=== PATIENT | female | born 1965 ===

== ENCOUNTER 2016-12-15 19:54 | Emergency (ER) | payer MEDICAID ==
[2016-12-15 19:55] VITALS: BMI 25.9
[2016-12-15 20:04] VITALS: TEMP 98.1
[2016-12-15] MEDS ORDERED: Albuterol-Ipratrop 3 mg / 0.5 (3 ml) UD IH STA (20:07)
--- NOTE | 2016-12-15 20:13 | ED PDOC ---
Arrival/HPI - General Chief Complaint: Shortness Of Breath Time Seen by Provider: 12/15/16 19:57 Historian: Patient - History of Present Illness Narrative History of Present Illness (Text): 12/15/16 20:05 A 51 year old female, whose past medical history includes asthma and hypertension, presents to the emergency department complaining of shortness of breath today. Patient reports her asthma flared up and she had ran out of her medication. Patient denies of any fever, chills, chest pain, productive cough, or any other complaints. PMD: Dr. Yi Time/Duration: Other (occurred today) Symptom Onset: Sudden Symptom Course: Unchanged Past Medical History - Provider Review Nursing Documentation Reviewed: Yes - Infectious Disease Hx of Infectious Diseases: None - Tetanus Immunization Tetanus Immunization: Up to Date - Cardiac Hx Hypertension: Yes - Pulmonary Hx Asthma: Yes - Neurological Hx Dizziness: Yes Hx Seizures: Yes - HEENT Hx HEENT Disorder: No Hx Macular Degeneration: No - Renal Hx Renal Disorder: No Hx Renal Failure: No - Endocrine/Metabolic Hx Endocrine Disorders: No Hx Systemic Lupus Erythematosus: No - Hematological/Oncological Hx Blood Disorders: No Hx Unexplained Bleeding: No - Integumentary Hx Dermatological Disorder: No Hx Squamous Cell Carcinoma: No - Musculoskeletal/Rheumatological Hx Falls: Yes (Seizures) - Gastrointestinal Hx Gastrointestinal Disorders: No - Genitourinary/Gynecological Hx Genitourinary Disorders: No Hx Urinary Tract Infection: No - Psychiatric Hx Psychophysiologic Disorder: No Hx Sexual Abuse: No Hx Substance Use: No - Past Surgical History Past Surgical History: No Previous - Surgical History Hx Valve Replacement: No - Anesthesia Hx Anesthesia: No - Suicidal Assessment Feels Threatened In Home Enviroment: No Family/Social History - Physician Review Nursing Documentation Reviewed: Yes Family/Social History: No Known Family HX Smoking Status: Never Smoked Hx Alcohol Use: Yes Hx Substance Use: No Hx Substance Use Treatment: No Allergies/Home Meds Allergies/Adverse Reactions: Allergies No Known Allergies Allergy (Verified 01/07/16 20:30) Home Medications: Home Meds Medication Instructions Recorded Confirmed Ergocalciferol (Vitamin D2) 50,000 iu PO Q2W 11/28/15 01/08/16 [Vitamin D2] HCTZ/Losartan Potassium [Hyzaar 12.5 mg PO DAILY 11/28/15 01/08/16 12.5 mg-50 mg] Review of Systems - Physician Review All systems were reviewed & negative as marked: Yes - Review of Systems Constitutional: absent: Fevers, Night Sweats Respiratory: SOB. absent: Cough (no productive cough) Cardiovascular: absent: Chest Pain Physical Exam Vital Signs Reviewed: Yes Vital Signs Temp Pulse Resp BP Pulse Ox 12/15/16 20:15 20 12/15/16 20:01 98.1 F 112 H 18 146/107 H 99 Temperature: Afebrile Blood Pressure: Normal Pulse: Tachycardic Respiratory Rate: Normal Appearance: Positive for: Well-Appearing Pain Distress: None Mental Status: Positive for: Alert and Oriented X 3 - Systems Exam Head: Present: Atraumatic, Normocephalic Pupils: Present: PERRL Extroacular Muscles: Present: EOMI Conjunctiva: Present: Normal Mouth: Present: Moist Mucous Membranes Neck: Present: Normal Range of Motion Respiratory/Chest: Present: Wheezes (wheezing bilaterally) Cardiovascular: Present: Regular Rate and Rhythm, Normal S1, S2. No: Murmurs Abdomen: Present: Normal Bowel Sounds. No: Tenderness, Distention, Peritoneal Signs Back: Present: Normal Inspection Upper Extremity: Present: Normal Inspection. No: Cyanosis, Edema Lower Extremity: Present: Normal Inspection. No: Edema Neurological: Present: GCS=15, CN II-XII Intact, Speech Normal Skin: Present: Warm, Dry, Normal Color. No: Rashes Psychiatric: Present: Alert, Oriented x 3, Normal Insight, Normal Concentration Medical Decision Making ED Course and Treatment: 12/15/16 20:10 Impression: 51 year old female with shortness of breath. Physical exam shows bilateral wheezing in the lungs. Plan: -- Duoneb -- Reassess and disposition Prior Visits: Notes and results from previous visits were reviewed. On 01/07/2016, patient visited the emergency department for shortness of breath. Patient was admitted. Progress Notes: - EKG Interpretation EKG Interpretation (Text): 12/15/16 20:15 Sinus tachycardia@ 110,no acute changes Interpreted by ED Physician: Yes Type: 12 lead EKG - Medication Orders Current Medication Orders: Discontinued Medications Albuterol/Ipratropium (Duoneb 3 Mg/0.5 Mg (3 Ml) Ud) 3 ml IH ONCE STA Stop: 12/15/16 20:08 Last Admin: 12/15/16 20:18 Dose: 3 ml - Scribe Statement The provider has reviewed the documentation as recorded by the Marshaiblucero Greer Provider Scribe Provider Scribe Attestation: All medical record entries made by the Marshaibe were at my direction and personally dictated by me. I have reviewed the chart and agree that the record accurately reflects my personal performance of the history, physical exam, medical decision making, and the department course for this patient. I have also personally directed, reviewed, and agree with the discharge instructions and disposition. Disposition/Present on Arrival - Present on Arrival Any Indicators Present on Arrival: No History of DVT/PE: No History of Uncontrolled Diabetes: No Urinary Catheter: No History of Decub. Ulcer: No History Surgical Site Infection Following: None - Disposition Have Diagnosis and Disposition been Completed?: Yes Diagnosis: Asthma Disposition: HOME/ ROUTINE Disposition Time: 21:21 Patient Plan: Discharge Condition: GOOD Discharge Instructions (ExitCare): Asthma (ED) Additional Instructions: Medication as prescribed/follow up with your doctor this week Referrals: Veronica Yi DO [Primary Care Provider] - Follow up with primary Forms: [employer] ([place])
[2016-12-15 20:19] VITALS: RESP 20
[2016-12-15 22:12] VITALS: BP 144/97; PULSE 96; O2SAT 98
--- NOTE | 2016-12-16 13:48 | CARD ---
APPROVED REPORT EKG Measurement Heart [id number] <Conclusion> Sinus tachycardia Otherwise normal ECG
== END 2016-12-15 22:12 | disposition home or self-care (01) ==
LOC: ED 19:54
DX: J45.909 Unspecified asthma, uncomplicated (principal); I10 Essential (primary) hypertension

== ENCOUNTER 2018-05-22 11:03 | Outpatient (CLI) | payer MEDICAID | END 2018-05-22 11:04 | disposition home or self-care (01) | LOC: RAD 11:03 ==

== ENCOUNTER 2018-05-31 13:53 | Emergency (ER) | payer MEDICAID ==
[2018-05-31 14:16] VITALS: RESP 18; BMI 30.7
--- NOTE | 2018-05-31 14:25 | ED PDOC ---
Arrival/HPI - General Historian: Patient - History of Present Illness Narrative History of Present Illness (Text): 05/31/18 14:13 53 y/o female, pmh including htn, nkda, post menopausal, c/o rt. lower back pain x 3 days with no fall or trauma. Aching pain, aggravated by movement, feels spasm, no numbness or tingling, non radiating pain, no urinary symptoms, no rash, no night sweat, no dizziness, no change in vision, no other medical or psychological complaints. Past Medical History - Provider Review Nursing Documentation Reviewed: Yes - Infectious Disease Hx of Infectious Diseases: None - Tetanus Immunization Tetanus Immunization: Up to Date - Cardiac Hx Hypertension: Yes - Pulmonary Hx Asthma: Yes - Neurological Hx Dizziness: Yes Hx Seizures: Yes - HEENT Hx HEENT Disorder: No Hx Macular Degeneration: No - Renal Hx Renal Disorder: No Hx Renal Failure: No - Endocrine/Metabolic Hx Endocrine Disorders: No Hx Systemic Lupus Erythematosus: No - Hematological/Oncological Hx Blood Disorders: No Hx Unexplained Bleeding: No - Integumentary Hx Dermatological Disorder: No Hx Squamous Cell Carcinoma: No - Musculoskeletal/Rheumatological Hx Falls: Yes (Seizures) - Gastrointestinal Hx Gastrointestinal Disorders: No - Genitourinary/Gynecological Hx Genitourinary Disorders: No Hx Urinary Tract Infection: No - Psychiatric Hx Psychophysiologic Disorder: No Hx Sexual Abuse: No Hx Substance Use: No - Past Surgical History Past Surgical History: No Previous - Surgical History Hx Valve Replacement: No - Anesthesia Hx Anesthesia: No - Suicidal Assessment Feels Threatened In Home Enviroment: No Family/Social History - Physician Review Nursing Documentation Reviewed: Yes Family/Social History: Unknown Family HX Smoking Status: Never Smoked Hx Alcohol Use: Yes Hx Substance Use: No Hx Substance Use Treatment: No Allergies/Home Meds Allergies/Adverse Reactions: Allergies No Known Allergies Allergy (Verified 05/31/18 14:14) Home Medications: Home Meds Medication Instructions Recorded Confirmed Ergocalciferol (Vitamin D2) 50,000 iu PO Q2W 11/28/15 05/31/18 [Vitamin D2] HCTZ/Losartan Potassium [Hyzaar 12.5 mg PO DAILY 11/28/15 05/31/18 12.5 mg-50 mg] Review of Systems - Review of Systems Constitutional: absent: Fatigue, Fevers Eyes: absent: Vision Changes ENT: absent: Hearing Changes Respiratory: absent: SOB, Cough Cardiovascular: absent: Chest Pain Gastrointestinal: absent: Abdominal Pain, Nausea, Vomiting Musculoskeletal: Back Pain. absent: Arthralgias, Neck Pain, Myalgias Skin: absent: Rash, Pruritis Neurological: absent: Headache, Dizziness Hemo/Lymphatic: absent: Adenopathy Psychiatric: absent: Anxiety, Depression, Suicidal Ideation Physical Exam Vital Signs Reviewed: Yes Temperature: Afebrile Blood Pressure: Hypertensive Pulse: Regular Respiratory Rate: Normal Appearance: Positive for: Well-Appearing, Non-Toxic, Comfortable Pain Distress: None Mental Status: Positive for: Alert and Oriented X 3 - Systems Exam Head: Present: Atraumatic, Normocephalic Pupils: Present: PERRL Extroacular Muscles: Present: EOMI Conjunctiva: Present: Normal Mouth: Present: Moist Mucous Membranes Neck: Present: Normal Range of Motion Respiratory/Chest: Present: Clear to Auscultation, Good Air Exchange. No: Respiratory Distress, Accessory Muscle Use Cardiovascular: Present: Regular Rate and Rhythm, Normal S1, S2. No: Murmurs Abdomen: No: Tenderness, Distention, Peritoneal Signs Back: Present: Normal Inspection, Other (Thoracic to LS spine: +ttp and spasm noted on the rt. paraspinal lumbar region, no midline tenderness or step off, no rash, FROM without limitation but pain is reproducible by flexion/lateral movement, sensation intact, motor 5/5, +DPPT pusles, capillary refill< 2 seconds, neurovascular intact. ). No: CVA Tenderness, Midline Tenderness, Pain with Leg Raise, Decubitus Ulcer Upper Extremity: Present: Normal Inspection. No: Cyanosis, Edema Lower Extremity: Present: Normal Inspection, NORMAL PULSES, Neurovascularly Intact. No: Edema Neurological: Present: GCS=15, CN II-XII Intact, Speech Normal, Motor Func Grossly Intact, Normal Cerebellar Funct, Gait Normal, Memory Normal Skin: Present: Warm, Dry, Normal Color. No: Rashes Psychiatric: Present: Alert, Oriented x 3, Normal Insight, Normal Concentration Medical Decision Making ED Course and Treatment: 05/31/18 14:29 -xray -UA -toradol/valium -Observe and reassess 05/31/18 16:30 -Urine hcg is negative -UA show no UTI -LS spine Unremarkable radiographs of the lumbar spine. -Pt. feels well, walking with normal gait and posture, no focal neurological deficits. -Discharge home with naproxen, flexeril, lidoderm patch, follow up with your own pmd and orthopedic/pain management within 2 days, return to the ER for any new or worsening signs or symptoms. - RAD Interpretation Radiology Orders: Date of service: 05/31/2018 PROCEDURE: Radiographs of the Lumbar Spine. HISTORY: rt. lower back pain COMPARISON: No prior. FINDINGS: BONES: Normal alignment. No listhesis. No fracture. DISC SPACES: Unremarkable. OTHER FINDINGS: None. IMPRESSION: Unremarkable radiographs of the lumbar spine. 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 Disposition/Present on Arrival - Present on Arrival Any Indicators Present on Arrival: No History of DVT/PE: No History of Uncontrolled Diabetes: No Urinary Catheter: No History of Decub. Ulcer: No History Surgical Site Infection Following: None - Disposition Have Diagnosis and Disposition been Completed?: Yes Diagnosis: Low back pain, Back spasm Disposition: HOME/ ROUTINE Disposition Time: 16:30 Patient Plan: Discharge Patient Problems: Current Active Problems Problem Status Onset Low back pain Acute Back spasm Acute Condition: IMPROVED Additional Instructions: -Discharge home with naproxen, flexeril, lidoderm patch, follow up with your own pmd and orthopedic/pain management within 2 days, return to the ER for any new or worsening signs or symptoms. Prescriptions: Cyclobenzaprine [Cyclobenzaprine HCl] 10 mg PO TID PRN #21 tab PRN Reason: Other Lidocaine 5% [Lidoderm] 1 patch TOP DAILY PRN #14 patch PRN Reason: Other Naproxen 500 mg PO BID PRN #20 tablet PRN Reason: Other Referrals: Veronica Yi DO [Primary Care Provider] - Follow up with primary Saulo King DO [Staff Provider] - Follow up with primary Forms: WORK NOTE
[2018-05-31 15:50] LABS: URINE BILIRUBIN NEGATIVE (NEGATIVE); URINE BLOOD NEGATIVE (NEGATIVE); URINE GLUCOSE (UA) NEGATIVE (NEGATIVE); URINE LEUKOCYTE ESTERASE NEGATIVE Leu/uL (NEGATIVE); URINE PROTEIN NEGATIVE mg/dL (<30 mg/dL); URINE UROBILINOGEN 0.2 E.U./dL (<1 E.U./dL)
[2018-05-31 15:52] LABS: URINE APPEARANCE CLEAR (CLEAR); URINE COLOR YELLOW (YELLOW)
--- NOTE | 2018-05-31 16:38 | RAD ---
Date of service: 05/31/2018 PROCEDURE: Radiographs of the Lumbar Spine. HISTORY: rt. lower back pain COMPARISON: No prior. FINDINGS: BONES: Normal alignment. No listhesis. No fracture. DISC SPACES: Unremarkable. OTHER FINDINGS: None. IMPRESSION: Unremarkable radiographs of the lumbar spine.
[2018-05-31 16:58] VITALS: BP 129/84; PULSE 82; TEMP 98; O2SAT 98
== END 2018-05-31 16:58 | disposition home or self-care (01) ==
LOC: ED 13:53
DX: M54.5 Low back pain (principal); M62.830 Muscle spasm of back
CPT/HCPCS: 72110; 81003; 81025; 96372; 99282; J1885